=== PATIENT | female | born 1985 | race Caucasian/White ===

== ENCOUNTER 2016-09-29 20:42 | Inpatient (IN) | payer OTHER ==
[~2016-09-29] VITALS: Ht 171.5 cm; Wt 73.2 kg
[~2016-09-29 20:42] MED LIST: MTR600X PO; PREN1TAB29 PO
[2016-09-29] MEDS ORDERED: LACTATED RINGER'S 1000ML 1,000 ML IV PRN (21:01)
[2016-09-29 21:14] VITALS: Ht 171.5 cm; Wt 73.2 kg
[2016-09-29 21:39] LABS: HEMATOCRIT 38.2 % (37-47); MEAN CELL VOLUME 85.3 fL (80-100); MEAN CORPUSCULAR HEMOGLOBIN 30.6 pg (25-34); MEAN CORPUSCULAR HGB CONC 35.9 g/dl (32-36); MEAN PLATELET VOLUME 9.5 fL (7.4-10.4); PLATELET COUNT 158 K/uL (130-400); RED BLOOD COUNT 4.48 M/uL (4.2-5.4); WHITE BLOOD COUNT 8.89 K/uL (4.8-10.8)
[2016-09-29] MEDS ORDERED: OXYTOCIN 30 UNITS/500ML NSS IV ONE (21:39)
--- NOTE | 2016-09-29 21:41 | HISTORY & PHYSICAL EXAMINATION ---
DATE OF ADMISSION: 09/29/2016 CHIEF COMPLAINT: Leakage of fluid and contractions. HISTORY OF PRESENT ILLNESS: The patient is a 30-year-old -0-2-1 at 39 weeks and 5 days of gestation, who started to feel leakage of fluid around 8:00 p.m., it was trickling and then she had gush of clear fluid Her contractions started soon after, has been coming every 3-4 minutes. She is uncomfortable and desires epidural for pain. She denies any vaginal bleeding. She denies headache, change in her vision, nausea, vomiting, fever, chills, chest pain or shortness of breath. She reports good movements. Her has been uncomplicated. PAST MEDICAL HISTORY: Cornea disorder, blindness of right eye, deafness in right ear. PAST SURGICAL HISTORY: Breast augmentation, Schwannoma surgery, scalp reduction, oral surgery, nasal septum surgery and nasal sinus surgery. MEDICATIONS: vitamins. ALLERGIES: No known drug allergies. SOCIAL HISTORY: The patient is , lives with her and her son, and she is a nurse. She denies smoking, alcohol, or drug use. GYNECOLOGIC HISTORY: The patient denies any history of STDs, including chlamydia, gonorrhea, or herpes. OBSTETRICAL HISTORY: #1 was 2004, she had therapeutic . #2 in 2012, she had spontaneous . #3 in 2013, she had full term spontaneous vaginal delivery of a viable male son, baby was 8 pounds 11 ounces, delivered by myself. This is her fourth . LABS: Blood type is A positive, antibody screen negative, rubella titer positive, RPR nonreactive, hepatitis B surface antigen negative. Urine culture was negative. GC chlamydia cultures were negative. Quad screen testing was negative. Glucola was 79 mg/dL. GBS culture was negative on September 02. PHYSICAL EXAMINATION: GENERAL: The patient is alert, oriented x3. She is in moderate distress with contractions. VITAL SIGNS: Stable, afebrile. CARDIOVASCULAR: S1, S2, RRR. LUNGS: Clear to auscultation bilaterally. ABDOMEN: Soft, gravid, [place] 7-8 pounds. EXTREMITIES: Nontender, no edema. PELVIC: She is grossly ruptured, clear fluid. Her cervix is 6-7 cm dilated, 80% effaced, -1, with vertex presentation. heart rate is 140s, category 1. [place] contractions every 3-4 minutes. ASSESSMENT AND PLAN: The patient is a 30-year-old 4, para 1-0-2-1 at 39 weeks and 5 days of gestation presenting in active labor and spontaneous rupture of membranes. Vital signs stable, afebrile. heart rate reassuring. Group B strep negative. Plan is to admit her to start IV fluids and epidural for pain per patient request, and anticipate spontaneous vaginal delivery. MTDD
[2016-09-29] MEDS: LACTATED RINGER'S 1000ML 1,000 ML IV SCH (21:50)
[2016-09-29] MEDS ORDERED: BUPIVACAINE 0.25% 30 ML VIAL ONE (21:59)
[2016-09-29] MEDS ORDERED: FENTANYL 2MCG/ML ROPIV 1.25MG/ML 100ML BAG EPI ONE (21:59)
[2016-09-29] MEDS ORDERED: EpHEDrine SULFATE INJ 50 MG/ML AMP ONE (21:59)
[2016-09-29] MEDS ORDERED: FENTANYL CITRATE INJ 50 MCG/1 ML 2 ML VIAL ONE (21:59)
[2016-09-29] MEDS ORDERED: SUPERCREAM 0.870 % 15GM JAR EXT PRN (22:30)
[2016-09-29] MEDS ORDERED: HYDROCORTISONE ACETATE 25 MG SUPP PR PRN (22:30)
[2016-09-29] MEDS ORDERED: DIPHTHERIA/TETANUS/PERTUSSIS 0.5 ML SYR/VIAL IM. ONE (22:30)
[2016-09-29] MEDS ORDERED: LANOLIN OINT EXT PRN ×2 (22:30)
[2016-09-29] MEDS ORDERED: MEASLES, MUMPS & RUBELLA VIRUS VIAL SQ. ONE (22:30)
[2016-09-29] MEDS ORDERED: ACETAMINOPHEN 325 MG TAB PO PRN (22:30)
[2016-09-29] MEDS ORDERED: OXYTOCIN 30 UNITS/500ML NSS IV PRN (22:30)
[2016-09-29] MEDS ORDERED: BENZOCAINE 20% AER SPR 82.5 GM CAN EXT PRN (22:30)
--- NOTE | 2016-09-29 23:04 | DELIVERY SUMMARY ---
DATE OF OPERATION: 09/29/2016 TIME OF DELIVERY OF BABY: 2208. TIME OF DELIVERY OF PLACENTA: 2219. DETAILS OF DELIVERY: The patient is a 30-year-old G4, P 1-0-2-1, at 39 weeks and 5 days of gestation, who presented to labor and delivery with spontaneous rupture of membranes and in active labor. She progressed to full dilatation very quickly and desired to push. She did not have time to receive epidural. She pushed for about 15 minutes and delivered the head. Then turtle sign was noted and tight nuchal cord x2 around the neck. The patient was very uncomfortable to tolerate suprapubic pressure. Posterior shoulder was ( right) was bulging with minimal traction . The perineum was tight and intact. To facilitate the delivery of posterior shoulder a small right mediolateral episiotomy was opened and then posterior shoulder and the arm were delivered within 50 seconds from the delivery ot the head. Then the anterior shoulder. Nuchals cords were reduced and the baby was handed off to the mother, mouth and nose were suctioned. Cord was clamped x2 and cut. Baby was handed off to the awaiting pediatric team. Cord blood was obtained, it was a 3-vessel cord. Vagina and perineum were checked for lacerations. There was no laceration other than a small incision on the right labial skin which was about 1 cm. It was repaired with 2-0 Vicryl in a running locked fashion. Good hemostasis was achieved. The rest of the vagina and perineum were intact. Placenta was found to be in the vagina, delivered spontaneously as intact and complete. Uterus was explored, found to be empty. Lower segment was cleared off all clots and debris. Fundus was firm. EBL was 200. Baby was a viable male infant, Apgars 8 and 9, weight was 4087 gr. Mother and baby tolerated the procedure well in recovery. I was present during the whole procedure. I attest to the content of the Intraoperative Record and any orders documented therein. Any exceptions are noted below. JONNIED
[2016-09-29] MEDS: IBUPROFEN 600 MG TAB PO PRN (23:23)
[2016-09-30] VITALS (8 sets, daily range): BP systolic 108–138; BP diastolic 66–77; PULSE 64–93; TEMP 36.6–37.1
[2016-09-30] MEDS: LACTATED RINGER'S 1000ML 1,000 ML IV SCH (05:01)
[2016-09-30] MEDS: IBUPROFEN 600 MG TAB PO PRN ×4 (05:07→18:49)
[2016-09-30 07:27] LABS: HEMATOCRIT 33.8 % (37-47)
[2016-09-30] MEDS: DOCUSATE SODIUM 100 MG CAP PO SCH ×2 (09:10→19:54)
[2016-09-30] MEDS: PRENATAL VITAMIN TAB PO SCH (09:11)
[2016-09-30] MEDS: FERROUS SULFATE 325 MG TAB PO SCH (09:11)
--- NOTE | 2016-09-30 10:29 | OB/GYN Progress Note ---
[facility] Progress Note Date of Service Sep 30, 2016. Subjective conversation w/ patient, physical exam Ambulation: ambulating normally Voiding: no voiding problems Passing Gas: Yes Diet Tolerance: Regular Diet Lochia: Moderate Feeding Type: Breast Feeding Review of Systems Constitutional: No chills, No fatigue, No fever, No problem reported, No sweats , No weakness, No weight loss Respiratory: No cough, No dyspnea at rest, No dyspnea on exertion, No hemoptysis, No problem reported, No shortness of breath, No sputum, No wheezing Cardiac: No PND, No chest pain, No claudication, No edema, No orthopnea, No palpitations, No problem reported Breast: No breast lump, No breast pain, No change in shape, No nipple discharge , No problem reported, No see HPI Abdomen: No GI bleeding, No constipation, No diarrhea, No nausea, No pain, No problem reported, No vomiting Female : No abnormal vaginal bleeding, No dysuria, No hematuria, No incontinence, No problem reported, No see HPI, No urinary frequency, No vaginal discharge Objective Vital Signs Date Time Temp Pulse Resp B/P Pulse Ox O2 Delivery O2 Flow Rate FiO2 09/30/16 08:00 37.1 73 16 117/76 Room Air 09/30/16 04:30 36.6 80 20 112/66 Room Air 09/30/16 01:00 36.7 85 18 114/68 Room Air 09/30/16 01:00 Room Air Physical Exam General Appearance: WELL-APPEARING, WD/WN Respiratory/Chest: chest non-tender, lungs clear, normal breath sounds, no respiratory distress, no accessory muscle use Cardiovascular: regular rate, rhythm, no edema, no gallop, no JVD, no murmur Abdomen: normal bowel sounds, non tender, soft, no organomegaly, no pulsatile mass Fundus: Firm Incision Description: Clean, Dry & Intact Extremities: normal range of motion, non-tender, normal inspection, no pedal edema, no calf tenderness Laboratory Results Last 24 Hours Test 09/29/16 21:30 09/30/16 07:17 White Blood Count 8.89 K/uL Red Blood Count 4.48 M/uL Hemoglobin 13.7 g/dL 11.8 g/dL Hematocrit 38.2 % 33.8 % Mean Corpuscular Volume 85.3 fL Mean Corpuscular Hemoglobin 30.6 pg Mean Corpuscular Hemoglobin Concent 35.9 g/dl RDW Standard Deviation 39.9 fL RDW Coefficient of Variation 12.8 % Platelet Count 158 K/uL Mean Platelet Volume 9.5 fL Assessment and Plan Post- Day Number: 1 Continue Routine Care: Anticipate disch tomorrow
[2016-09-30] MEDS ORDERED: MTR600X PO (10:41)
--- NOTE | 2016-09-30 10:42 | Discharge Instructions ---
Discharge Instructions Date of Service Sep 30, 2016. Admission Reason for Admission: Check Rupture Discharge Discharge Diagnosis / Problem: Discharge Goals Goal(s): Routine recovery after delivery Activity Recommendations Activity Limitations: as noted below ACTIVITY RECOMMENDATIONS: * Gradual return to full activity over the next 2-3 weeks. * No lifting - nothing heavier than baby over the next 2-3 weeks. * Do not engage in vigorous exercise, sexual activity or sports until cleared by your physician. * Do not drive or operate any motorized equipment until cleared by your physician. * You may shower/bathe daily. BREAST CARE: If you are not breast feeding: * Wear a supportive bra 24 hours a day for one to two weeks. * Avoid stimulating your breasts and nipples as much as possible during the first few weeks after delivery. * When taking a shower, have the warm water hit your back, not breasts. * When your breasts feel full, apply ice packs. Usually three to four times a day helps ease the discomfort. * Take a mild pain medication (Tylenol/Motrin) when you are uncomfortable. If breast feeding: * Use breast milk to lubricate nipples. Lansinoh cream may be used for sore nipples. You do not need to remove cream prior to breast feeding. If using a different brand of cream, check the label for directions regarding removal of cream prior to nursing. * Wear a supportive bra. * If having problems with breasts or breast feeding, call a nursing education consultant or your health care provider. EPISIOTOMY CARE: After delivery, if you have an episiotomy (stitches), the following steps will ease discomfort and aid healing. * For the first 24 hours after delivery, place ice packs next to your episiotomy to help reduce swelling. * After the first 24 hour-period, sitz baths, either portable or in the tub, are suggested. A shower with a shower arm sprayed over the episiotomy may be comforting. * Terri care should be done after each voiding and bowel movement. Squirt warm water from a plastic bottle over the perineum (region of the body between the anus and urinary opening) and pat dry. * Use Dermoplast to ease discomfort. Shake container. [place] directly over the episiotomy. * Place a Tucks on a clean sanitary pad next to your episiotomy. OVER THE COUNTER MEDICATION: * For discomfort or pain, you may use Acetaminophen (Tylenol), Ibuprofen (Advil ), or Naproxen (Aleve) following the package directions. * For constipation you may use Colace following the package directions. SPECIAL CARE INSTRUCTIONS: When you are discharged from the hospital, it is important for you to follow the instructions listed below: * During the first week at home, you should be able to care for yourself and your baby. In addition, the usual light household activities are encouraged. * Limit your activities to the way you feel. Do not try to clean the house or move furniture. Be sensible. * If you actively engage in sports and have done so up until the time of your delivery, you may resume these activities as soon as you feel able. This may take up to one month or even longer. Use good judgment. * Continue to take your vitamins for at least six weeks after the of your baby. * Your diet need not be limited unless you were on a special diet before your delivery. Breast-feeding mothers need around 2500 calories per day and at least 64-80 ounces of fluid per day (8 to 10 glasses). * You should eat foods from the four major food groups. Crash diets or fad diets are to be avoided. Eating lean meats, fresh fruits and vegetables, low-fat dairy products, high fiber foods and a regular exercise program, will help you get back to your pre- weight without putting your health at risk. * Constipation is sometimes a problem after delivery. Take a mild laxative as needed. If breast feeding, Milk of Magnesia is acceptable to use. You may use a suppository or Fleets enema if no episiotomy. * A daily shower or tub bath is suggested. Be sure to thoroughly and gently dry the perineum. * A bloody vaginal discharge will usually continue until around four weeks post . A small amount of bleeding may continue for as long as six weeks. Vaginal discharge changes from the bright red bleeding after delivery to pink then brownish and finally yellowish-pink before becoming white and disappearing. * Bleeding may increase with activity. Your first period may come in 4-8 weeks. If you are breast feeding, your period may be delayed even longer. * [place] (sex) can begin whenever both you and your partner feel comfortable and do not have any form of genital infection. It is recommended that you wait until after your return appointment and discuss with your physician. If you have questions, please talk to your health care practitioner. A condom should be used to prevent infection and . * Foreplay, gentle intercourse and lubrication is very important the first several times to prevent pain. A water-based lubricant such as K-Y jelly or Astroglide may be used. * Tampons may be used six weeks after delivery. * Douching should be avoided for 6 weeks after delivery. * If you have RH negative blood and your baby is RH positive, you will receive RHOGAM by injection prior to discharge. The nurse will give you a card to keep with you that has the date and place that you received RHOGAM after delivery. * During your care, you had a Rubella screen done to check for the presence of rubella antibodies in your blood. If your test was negative, you will receive a Rubella vaccine prior to discharge. This vaccine may cause a fever, soreness at the injection site and flu-like symptoms. If these symptoms persist, notify your health care practitioner. is not advised for three months after a Rubella vaccine. There is a higher chance of having a baby with defects if conceived within three months of getting the vaccine. * If you were discharged 24 hours from delivery or before 48 hours: Visiting nurses will come to your home 48 hours after discharge to assess you and your baby. The visiting nurse will meet with you while you are in the hospital to arrange a time and get directions to your home. * Verbalizes understanding of car seat law as reviewed with patient nursing. * Car Seat hand-out given and reviewed with patient by nursing. * Shaken baby information reviewed with patient by nursing. Call you doctor if: * Heavy bleeding (saturating several pads an hour) or passing clots the size of your fist. * A fever >101 degrees F (38.3 degrees C) on two occasions four hours apart and/or chills. * Unusual pain in the pelvic or vaginal areas. * "Baby Blues" lasting longer than two weeks. If you have any questions or concerns, call your health care practitioner at . FOLLOW-UP VISIT: * Please call the office at to schedule a 6 week examination. It is important you keep this appointment. * It is important for you to make arrangements for either yearly or twice yearly check-ups thereafter. . Current Hospital Diet Patient's current hospital diet: Regular OB Diet Discharge Diet Recommended Diet: Regular Diet Pending Studies Studies pending at discharge: no Medical Emergencies . Who to Call and When: Medical Emergencies: If at any time you feel your situation is an emergency, please call 911 immediately. . Non-Emergent Contact Non-Emergency issues call your: Specialist . . "Provider Documentation" section prepared by Kennedy Berger. . VTE Core Measure Inpt VTE Proph given/why not?: Treatment not indicated
[2016-09-30] MEDS: OXYCODONE/ACETAMINOPHEN 5-325 TAB PO PRN (19:54)
[2016-09-30] MEDS ORDERED: BISACODYL 5 MG TABEC PO SCH (20:00)
[2016-10-01] MEDS: OXYCODONE/ACETAMINOPHEN 5-325 TAB PO PRN (00:04)
[2016-10-01 06:09] LABS: MEAN CELL VOLUME 87.2 fL (80-100); MEAN CORPUSCULAR HGB CONC 34.4 g/dl (32-36); MEAN PLATELET VOLUME 9.3 fL (7.4-10.4); PLATELET COUNT 147 K/uL (130-400); RED BLOOD COUNT 3.67 M/uL (4.2-5.4); WHITE BLOOD COUNT 8.85 K/uL (4.8-10.8)
[2016-10-01] MEDS ORDERED: BISACODYL 10 MG SUPP PR PRN (07:00)
[2016-10-01 07:50] VITALS: BP 116/75; PULSE 74; TEMP 36.6; O2SAT 100
[2016-10-01] MEDS: FERROUS SULFATE 325 MG TAB PO SCH (08:33)
[2016-10-01] MEDS: DOCUSATE SODIUM 100 MG CAP PO SCH (08:33)
[2016-10-01] MEDS: PRENATAL VITAMIN TAB PO SCH (08:33)
[2016-10-01] MEDS: IBUPROFEN 600 MG TAB PO PRN (08:34)
[2016-10-01] MEDS ORDERED: MTR600X PO (09:00)
--- NOTE | 2016-10-01 09:02 | Discharge Instructions ---
Discharge Instructions Date of Service Oct 01, 2016. Admission Reason for Admission: Check Rupture Discharge Discharge Diagnosis / Problem: term delivered Discharge Goals Goal(s): Routine recovery after delivery Activity Recommendations Activity Limitations: as noted below Lifting Limitations: gradually increase as tolerated Exercise/Sports Limitations: gradually increase as tolerated May Resume Sexual Activity: after follow-up appointment Shower/Bathe: no limitations Driving or Machine Use: resume 3 days after discharge . Instructions / Follow-Up Instructions / Follow-Up ACTIVITY RECOMMENDATIONS: * Gradual return to full activity over the next 2-3 weeks. * No lifting - nothing heavier than baby over the next 2-3 weeks. * Do not engage in vigorous exercise, sexual activity or sports until cleared by your physician. * Do not drive or operate any motorized equipment until cleared by your physician. * You may shower/bathe daily. BREAST CARE: If you are not breast feeding: * Wear a supportive bra 24 hours a day for one to two weeks. * Avoid stimulating your breasts and nipples as much as possible during the first few weeks after delivery. * When taking a shower, have the warm water hit your back, not breasts. * When your breasts feel full, apply ice packs. Usually three to four times a day helps ease the discomfort. * Take a mild pain medication (Tylenol/Motrin) when you are uncomfortable. If breast feeding: * Use breast milk to lubricate nipples. Lansinoh cream may be used for sore nipples. You do not need to remove cream prior to breast feeding. If using a different brand of cream, check the label for directions regarding removal of cream prior to nursing. * Wear a supportive bra. * If having problems with breasts or breast feeding, call a senior safety management consultant or your health care provider. EPISIOTOMY CARE: After delivery, if you have an episiotomy (stitches), the following steps will ease discomfort and aid healing. * For the first 24 hours after delivery, place ice packs next to your episiotomy to help reduce swelling. * After the first 24 hour-period, sitz baths, either portable or in the tub, are suggested. A shower with a shower arm sprayed over the episiotomy may be comforting. * Terri care should be done after each voiding and bowel movement. Squirt warm water from a plastic bottle over the perineum (region of the body between the anus and urinary opening) and pat dry. * Use Dermoplast to ease discomfort. Shake container. [place] directly over the episiotomy. * Place a Tucks on a clean sanitary pad next to your episiotomy. OVER THE COUNTER MEDICATION: * For discomfort or pain, you may use Acetaminophen (Tylenol), Ibuprofen (Advil ), or Naproxen (Aleve) following the package directions. * For constipation you may use Colace following the package directions. SPECIAL CARE INSTRUCTIONS: When you are discharged from the hospital, it is important for you to follow the instructions listed below: * During the first week at home, you should be able to care for yourself and your baby. In addition, the usual light household activities are encouraged. * Limit your activities to the way you feel. Do not try to clean the house or move furniture. Be sensible. * If you actively engage in sports and have done so up until the time of your delivery, you may resume these activities as soon as you feel able. This may take up to one month or even longer. Use good judgment. * Continue to take your vitamins for at least six weeks after the of your baby. * Your diet need not be limited unless you were on a special diet before your delivery. Breast-feeding mothers need around 2500 calories per day and at least 64-80 ounces of fluid per day (8 to 10 glasses). * You should eat foods from the four major food groups. Crash diets or fad diets are to be avoided. Eating lean meats, fresh fruits and vegetables, low-fat dairy products, high fiber foods and a regular exercise program, will help you get back to your pre- weight without putting your health at risk. * Constipation is sometimes a problem after delivery. Take a mild laxative as needed. If breast feeding, Milk of Magnesia is acceptable to use. You may use a suppository or Fleets enema if no episiotomy. * A daily shower or tub bath is suggested. Be sure to thoroughly and gently dry the perineum. * A bloody vaginal discharge will usually continue until around four weeks post . A small amount of bleeding may continue for as long as six weeks. Vaginal discharge changes from the bright red bleeding after delivery to pink then brownish and finally yellowish-pink before becoming white and disappearing. * Bleeding may increase with activity. Your first period may come in 4-8 weeks. If you are breast feeding, your period may be delayed even longer. * [place] (sex) can begin whenever both you and your partner feel comfortable and do not have any form of genital infection. It is recommended that you wait until after your return appointment and discuss with your physician. If you have questions, please talk to your health care practitioner. A condom should be used to prevent infection and . * Foreplay, gentle intercourse and lubrication is very important the first several times to prevent pain. A water-based lubricant such as K-Y jelly or Astroglide may be used. * Tampons may be used six weeks after delivery. * Douching should be avoided for 6 weeks after delivery. * If you have RH negative blood and your baby is RH positive, you will receive RHOGAM by injection prior to discharge. The nurse will give you a card to keep with you that has the date and place that you received RHOGAM after delivery. * During your care, you had a Rubella screen done to check for the presence of rubella antibodies in your blood. If your test was negative, you will receive a Rubella vaccine prior to discharge. This vaccine may cause a fever, soreness at the injection site and flu-like symptoms. If these symptoms persist, notify your health care practitioner. is not advised for three months after a Rubella vaccine. There is a higher chance of having a baby with defects if conceived within three months of getting the vaccine. * If you were discharged 24 hours from delivery or before 48 hours: Visiting nurses will come to your home 48 hours after discharge to assess you and your baby. The visiting nurse will meet with you while you are in the hospital to arrange a time and get directions to your home. * Verbalizes understanding of car seat law as reviewed with patient nursing. * Car Seat hand-out given and reviewed with patient by nursing. * Shaken baby information reviewed with patient by nursing. Call you doctor if: * Heavy bleeding (saturating several pads an hour) or passing clots the size of your fist. * A fever >101 degrees F (38.3 degrees C) on two occasions four hours apart and/or chills. * Unusual pain in the pelvic or vaginal areas. * "Baby Blues" lasting longer than two weeks. If you have any questions or concerns, call your health care practitioner at . FOLLOW-UP VISIT: * Please call the office at to schedule a 6 week examination. It is important you keep this appointment. * It is important for you to make arrangements for either yearly or twice yearly check-ups thereafter. Current Hospital Diet Patient's current hospital diet: Regular OB Diet Discharge Diet Recommended Diet: Regular OB Diet Fluid Restriction: None Pending Studies Studies pending at discharge: no Work Instructions Return To Work: after follow-up Lifting Limitations: no more than 10 pounds Medical Emergencies . Who to Call and When: Medical Emergencies: If at any time you feel your situation is an emergency, please call 911 immediately. . Non-Emergent Contact Non-Emergency issues call your: Primary Care Provider . . "Provider Documentation" section prepared by Cordell Waldrop. . VTE Core Measure Inpt VTE Proph given/why not?: Treatment not indicated
--- NOTE | 2016-10-01 09:11 | OB/GYN Progress Note ---
[facility] Progress Note Date of Service Oct 01, 2016. Subjective conversation w/ patient, physical exam Ambulation: ambulating normally Voiding: no voiding problems Passing Gas: Yes Diet Tolerance: Regular Diet Lochia: Small Feeding Type: Bottle Feeding Objective Vital Signs Date Time Temp Pulse Resp B/P Pulse Ox O2 Delivery O2 Flow Rate FiO2 09/30/16 23:50 37.0 67 18 111/67 Room Air 09/30/16 23:50 Room Air 09/30/16 19:45 36.8 76 20 120/75 Room Air 09/30/16 15:53 36.9 64 18 109/72 Room Air 09/30/16 15:20 Room Air 09/30/16 11:52 37.0 76 20 138/77 Room Air Physical Exam General Appearance: WELL-APPEARING, NO APPARENT DISTRESS Abdomen: normal bowel sounds, non tender, soft Fundus: Firm Extremities: normal range of motion, normal inspection Laboratory Results Last 24 Hours Test 10/01/16 05:30 White Blood Count 8.85 K/uL Red Blood Count 3.67 M/uL Hemoglobin 11.0 g/dL Hematocrit 32.0 % Mean Corpuscular Volume 87.2 fL Mean Corpuscular Hemoglobin 30.0 pg Mean Corpuscular Hemoglobin Concent 34.4 g/dl RDW Standard Deviation 42.2 fL RDW Coefficient of Variation 13.1 % Platelet Count 147 K/uL Mean Platelet Volume 9.3 fL Assessment and Plan Post- Day Number: 2 Continue Routine Care: discharged
[2016-10-01 14:15] VITALS: BP_DIAS 75; PULSE 74; TEMP 36.6
== END 2016-10-01 14:15 | disposition home or self-care (01) | DRG 775 ==
LOC: C.OPB 20:42 → C.LD 20:43 → C.OPB 20:55 → C.LD 20:57 → C.OBG 09-30 00:59
PROVIDERS: ADMIT Obstetrics & Gynecology; ATTEND Obstetrics & Gynecology
PROC: 0W8NXZZ Division of Female Perineum, External Approach (ICD-10-PCS; principal; 2016-09-29)
PROC: 10E0XZZ Delivery of Products of Conception, External Approach (ICD-10-PCS; principal; 2016-09-29)
DX: O42.02 Full-term premature rupture of membranes, onset of labor within 24 hours of rupture (principal); Z37.0 Single live birth; O69.1XX0 Labor and delivery complicated by cord around neck, with compression, not applicable or unspecified; Z3A.39 39 weeks gestation of pregnancy

== ENCOUNTER 2020-11-14 20:02 | Inpatient (IN) ==
[2020-11-14] MEDS: LACTATED RINGER'S 1,000 ML IV PRN ×2 (20:05→23:40)
[2020-11-14] MEDS ORDERED: BUPIVACAINE 0.25% 30 ML VIAL ONE (20:09)
[2020-11-14] MEDS ORDERED: ePHEDrine sulfate 50 MG/ML AMP ONE (20:09)
[2020-11-14] MEDS ORDERED: fentaNYL citrate 100 MCG/2 ML VIAL ONE (20:09)
[2020-11-14] MEDS ORDERED: fentaNYL 2MCG/ML ROPIVACAINE 1.25MG/ML 100 ML BAG EPI ONE (20:09)
[2020-11-14] MEDS ORDERED: OXYTOCIN 30 UNITS/500 ML BAG IV PRN ×3 (20:13→22:36)
[2020-11-14] MEDS ORDERED: PENICILLIN G POTASSIUM 6 MU in DEXTROSE 5% 250 ML IV STA (20:13)
--- NOTE | 2020-11-14 20:24 | History & Physical Report ---
Date of Service November 14, 2020 Assessment & Plan (1) premature rupture of membranes: 35-year-old -0-2-2 at 35 weeks and 3 days of gestation presenting with premature rupture of membranes, history of macrosomia in prior pregnancies, IUGR with during with abnormal Dopplers, unknown GBS Vital signs stable afebrile heart rate reassuring Plan to admit, monitor, IV penicillin for unknown GBS and anticipate vaginal delivery. [employer] on-call has been notified. (2) Advanced maternal age (AMA) in : (3) IUGR (intrauterine growth restriction): Admission and Anticipated Discharge Date Admission Date: November 14, 2020 History of Present Illness Primary Care Provider: Adam Carl MD Patient is a 35-year-old -0-2-2 at 35 weeks and 3 days of gestation who had leakage of fluid at 6:30 PM. It was a gush and continued with trickling of clear water. No vaginal bleeding no contractions. She feels mild lower abdominal cramping. She denies fever chills, abdominal pain, nausea or vomiting nor Covid symptoms. This has been complicated by 1 advanced maternal age, NIPT was low risk 2 history of macrosomia 3 history of LEEP 4 history of brain schwannoma and surgery 5 IUGR, abdominal circumference is less than 2nd percentile with abnormal Doppler studies, elevated SD ratio per MFM ultrasound yesterday. She was recommended to follow-up next week for Dopplers. 6 unknown GBS Allergies Allergy/AdvReac Type Severity Reaction Status Date / Time No Known Allergies Allergy Verified 11/14/20 20:24 Home Medications Medication Instructions Recorded Confirmed Type VIT W/ FERROUS FUMARA PO DAILY #0 03/15/14 History () Ibuprofen 600 mg PO Q4H PRN #30 tab 09/30/16 Rx Ibuprofen 600 mg PO Q4H PRN #30 tab 10/01/16 Rx albuterol sulfate 3 inha INH Q4H PRN #8.5 gm 04/20/18 Rx Patient History Medical History Asthma Sinusitis Surgical History H/O sinus surgery Family History Other No pertinent family history Social History Smoking Status: Never smoker Hx Alcohol Use: No Hx Substance Use: No Preferred Language: Amharic Communication Ability: Effective Education Paraprofessional Required: No Beliefs That Will Affect Care: None marital status: Current Living Situation: Spouse and Family Other Information That Helps Us Care for You: No Feels Safe at Home: Yes Safety Concerns: Feels Safe At This Time OB History 2 FT 2 SAB [place] [employer] History No h/o STD's , no h/o HSV/ [place]/ GC Physical Exam Constitutional: WD/WN, vitals as above well developed NAD Gastrointestinal (Abdomen): normal bowel sounds, soft, nontender, no hepatosplenomegaly (Gravid, Wilner 5 lb) Genitourinary: normal external appearance OB Exam Abdomen: + vertex Manual OB Exam: + cervical dilation 5 cm, + cervical effacement 70% and + station -2 OB Exam Monitor Tracing: + external uterine monitor used and + category I Grossly ruptured, nitrazine is positive Results & Data ([facility]) Vital Signs (Past 12 Hours) Vital Signs Temp Pulse Resp BP 11/14/20 20:12 37.0 C 101 H 16 125/79
[2020-11-14 20:47] LABS: Hematocrit (blood only) 38.7 % (37-47); Hemoglobin 13.6 g/dL (12.0-16.0); Mean Corpuscular Hemoglobin 30.3 pg (25-34); Mean Corpuscular Hgb Conc 35.1 g/dL (32-36); Mean Corpuscular Volume 86.2 fL (80-100); Mean Platelet Volume 9.8 fL (7.4-10.4); Platelet Count 194 K/uL (130-400); RDW Coefficient of Variation 12.8 % (11.5-14.5); RDW Standard Deviation 40.7 fL (36.4-46.3); Red Blood Count 4.49 M/uL (4.2-5.4); White Blood Count 10.17 K/uL (4.8-10.8)
--- NOTE | 2020-11-14 22:31 | Obstetrical Progress Note ---
Date of Service November 14, 2020 Assessment & Plan Admission and Anticipated Discharge Date Admission Date: November 14, 2020 Subjective Patient is reevaluated. She has irregular mild contractions. She received first dose of PCN and decided not to have epidural for now. Patient about benefits and risk of expectant management versus induction of labor with PPROM. Patient desires to be checked and and wants induction of labor if there is no change. Cervix is 5 to 6 cm, 50%, head is at -3 station, with no significant change. heart rate category 1 Ramer with irregular contractions. Discussed starting Pitocin when she is due for second dose of penicillin. And she agrees with the plan. All questions were answered. Results & Data ([facility]) Vital Signs (Past 12 Hours) Vital Signs Temp Pulse Resp BP Pulse Ox 11/14/20 22:05 86 95 11/14/20 22:01 83 94 11/14/20 22:00 81 94 11/14/20 21:55 84 95 11/14/20 21:52 92 H 94 11/14/20 21:50 85 94 11/14/20 21:46 86 94 11/14/20 21:45 85 94 11/14/20 21:40 84 97 11/14/20 21:35 80 95 11/14/20 21:30 94 H 96 11/14/20 21:25 87 96 11/14/20 21:20 79 96 11/14/20 21:15 86 96 11/14/20 21:10 93 H 97 11/14/20 21:05 85 97 11/14/20 21:00 81 98 11/14/20 20:55 86 97 11/14/20 20:50 86 95 11/14/20 20:45 88 96 11/14/20 20:12 37.0 C 101 H 16 125/79
[2020-11-15] MEDS: PENICILLIN G POTASSIUM 3 MU in DEXTROSE 5% 100 ML IV PRN ×3 (00:23→08:39)
[2020-11-15] MEDS ORDERED: diphenhydrAMINE 50 MG/ML VIAL IV PRN (00:49)
[2020-11-15] MEDS ORDERED: NALOXONE HCL 0.4 MG/1 ML VIAL/CARP IV PRN (00:49)
[2020-11-15] MEDS ORDERED: ONDANSETRON INJ 2 MG/ML 2 ML VIAL IV PRN (00:49)
[2020-11-15] MEDS ORDERED: ePHEDrine sulfate 50 MG/ML AMP IV PRN (00:49)
[2020-11-15] MEDS ORDERED: NALOXONE HCL 1 MG in SODIUM CHLORIDE 0.9% 1000ML 1,000 ML IV PRN (00:49)
--- NOTE | 2020-11-15 01:01 | Anesthesiology Consultation ---
Date of Service November 15, 2020 Assessment & Plan Chart Review Chart Review: Patient NOT seen in Pre Admission Testing and Acceptable Risk for Labor Epidural Consults Requested none ASA ASA2 Proposed Anesthesia Anesthesia Type: Labor Epidural and CSE Risk / Benefits Reviewed With: PT / POA / Parent / Guardian, Accepts Plan and Informed Consent Obtained History Height/Weight Height: 5 ft 8 in Weight: 68.946 kg Allergies Allergy/AdvReac Type Severity Reaction Status Date / Time No Known Allergies Allergy Verified 11/14/20 20:24 Medications Home Medications Medication Instructions Recorded Confirmed Last Taken VIT W/ FERROUS FUMARA PO DAILY #0 03/15/14 Unknown () Active Medications Generic Name Dose Route Start Last Admin Trade Name Freq PRN Reason Stop Dose Admin Penicillin G Potassium 3 mu/ 106 mls @ 100 mls/hr 11/14/20 20:13 11/15/20 00:23 Dextrose IV 11/24/20 20:12 100 mls/hr Q4H PRN Administration Give until delivery Lactated Ringer's 1,000 mls @ 150 mls/hr 11/14/20 20:13 11/14/20 23:40 Lr IV 11/16/20 20:12 150 mls/hr .Q6H40M PRN Administration L&D Protocol Protocol Oxytocin 30 units in 500 mls @ 1 mls/hr 11/14/20 22:36 11/15/20 00:28 Pitocin IV 11/16/20 22:35 0.06 units/hr .Q24H PRN 1 mls/hr Labor Induction/Augmentation Administration Protocol 0.06 UNITS/HR NPO Date Last Intake of Fluids: 11/15/20 Time Last Intake of Fluids: 00:30 Date Last Intake of Solids: 11/14/20 Time Last Intake of Solids: 16:30 Past Medical History Medical History Sinusitis Exercise / Class Metabolic Activity II 4-5 Yardwork/Stairs/Walk up hill Past Family History Family History Other No pertinent family history Past Surgical History Surgical History H/O sinus surgery Past Anesthesia History No Hx of Anesthesia Complications and No Family Hx of Anesthesia Complications History of PONV No Hx of PONV and No Hx of Motion Sickness Social History Smoking Status: Never smoker Hx Alcohol Use: No Hx Substance Use: No Review of Systems no chest pain or sob, patient has a chronic cough Physical Exam Vital Signs Last Vital Signs Temp 36.8 C 11/15/20 00:25 Pulse 88 11/15/20 00:57 Resp 16 11/15/20 00:25 BP 104/65 11/14/20 22:29 Pulse Ox 98 11/15/20 00:57 ENMT Mouth: no TMJ abnormality Thyromental Distance: > or= 3.5 Finger Breadths Mallampati Class: II Neck normal visual inspection Respiratory normal respiratory effort and + cough Auscultation: lungs clear to auscultation bilaterally Cardiovascular Rate/Rhythm: regular rate and regular rhythm Musculoskeletal Spine: normal cervical ROM Neurologic moves all extremities Psychiatric Orientation: alert and oriented x 3 Testing Laboratory Results 11/14/20 20:36
[2020-11-15] MEDS: fentaNYL 2MCG/ML ROPIVACAINE 1.25MG/ML 100 ML BAG EPI PRN ×2 (01:18→09:58)
--- NOTE | 2020-11-15 02:31 | Obstetrical Progress Note ---
Date of Service November 15, 2020 Assessment & Plan Admission and Anticipated Discharge Date Admission Date: November 14, 2020 Subjective Patient received epidural and comfortable now FHR had decelerations after epidural Pitocin was at 2 miu/min, was stopped and she has given IVF bolus FHR back to 130-140's VE; 5/ 50%/ -2, scalp stimulation with increase in FHR to 140's Leaking clear fluid Continue to monitor closely Results & Data ([facility]) Vital Signs (Past 12 Hours) Vital Signs Temp Pulse Resp BP Pulse Ox 11/15/20 02:26 71 101/62 11/15/20 02:24 75 94 11/15/20 02:16 77 96 11/15/20 02:15 82 94 11/15/20 02:10 72 101/62 11/15/20 02:01 71 93 11/15/20 01:59 75 94 11/15/20 01:55 75 104/63 11/15/20 01:51 69 94 11/15/20 01:46 78 93 11/15/20 01:41 70 117/70 94 11/15/20 01:31 81 94 11/15/20 01:30 79 94 11/15/20 01:25 83 97/62 L 94 11/15/20 01:24 81 96/59 L 11/15/20 01:22 82 101/58 L 11/15/20 01:20 82 99/59 L 11/15/20 01:18 86 101/58 L 11/15/20 01:16 76 109/66 11/15/20 01:12 75 97 11/15/20 01:07 87 99 11/15/20 01:02 78 97 11/15/20 00:57 88 98 11/15/20 00:25 36.8 C 16 11/14/20 22:29 36.6 C 79 16 104/65 11/14/20 22:05 86 95 11/14/20 22:01 83 94 11/14/20 22:00 81 94 11/14/20 21:55 84 95 11/14/20 21:52 92 H 94 11/14/20 21:50 85 94 11/14/20 21:46 86 94 11/14/20 21:45 85 94 11/14/20 21:40 84 97 11/14/20 21:35 80 95 11/14/20 21:30 94 H 96 11/14/20 21:25 87 96 11/14/20 21:20 79 96 11/14/20 21:15 86 96 11/14/20 21:10 93 H 97 11/14/20 21:05 85 97 11/14/20 21:00 81 98 11/14/20 20:55 86 97 11/14/20 20:50 86 95 11/14/20 20:45 88 96 11/14/20 20:12 37.0 C 101 H 16 125/79
[2020-11-15] MEDS: LACTATED RINGER'S 1,000 ML IV PRN (05:51)
--- NOTE | 2020-11-15 07:45 | Labor Progress Brief Note ---
Date of Service November 15, 2020 Assessment & Plan Admission and Anticipated Discharge Date Admission Date: November 14, 2020 Physical Exam Genitourinary: Manual OB Exam: + cervical dilation 7 cm, + cervical effacement 70%, + station -1 and + amniotic fluid clear OB Exam Monitor Tracing: + external FHT monitor used, + external uterine monitor used, + category I and + normal FHT variability Results & Data ([facility]) Vital Signs (Past 12 Hours) Vital Signs Temp Pulse Resp BP Pulse Ox 11/15/20 07:42 76 125/64 11/15/20 07:31 66 98 11/15/20 07:26 66 124/79 11/15/20 07:25 36.6 C 67 20 124/79 99 11/15/20 07:16 74 100 11/15/20 07:10 72 109/76 11/15/20 07:01 70 93 11/15/20 06:56 66 107/70 11/15/20 06:48 66 94 11/15/20 06:46 68 94 11/15/20 06:40 67 110/71 11/15/20 06:33 65 94 11/15/20 06:31 66 95 11/15/20 06:25 36.8 C 72 18 112/75 11/15/20 06:16 69 97 11/15/20 06:11 64 124/79 11/15/20 06:01 64 98 11/15/20 05:56 61 103/64 11/15/20 05:46 66 97 11/15/20 05:40 64 103/61 11/15/20 05:31 69 98 11/15/20 05:25 68 112/71 11/15/20 05:16 67 97 11/15/20 05:11 72 93/56 L 11/15/20 05:01 69 94 11/15/20 04:55 70 97/61 L 11/15/20 04:46 67 94 11/15/20 04:40 70 98/59 L 11/15/20 04:36 68 94 11/15/20 04:31 70 94 11/15/20 04:30 36.5 C 18 11/15/20 04:25 74 103/62 94 11/15/20 04:16 61 94 11/15/20 04:10 76 100/60 11/15/20 04:01 76 92 06/04/21 03:55 74 104/64 11/15/20 03:46 76 93 11/15/20 03:40 76 111/67 11/15/20 03:31 78 93 11/15/20 03:26 71 94 11/15/20 03:25 72 109/65 11/15/20 03:16 71 93 11/15/20 03:15 71 94 11/15/20 03:10 77 105/63 11/15/20 03:09 72 94 11/15/20 03:01 72 95 11/15/20 02:59 73 94 11/15/20 02:47 74 94 11/15/20 02:46 72 95 11/15/20 02:41 72 94 11/15/20 02:40 73 105/66 11/15/20 02:31 76 97 11/15/20 02:26 36.7 C 71 18 101/62 11/15/20 02:24 75 94 11/15/20 02:16 77 96 11/15/20 02:15 82 94 11/15/20 02:10 72 101/62 11/15/20 02:01 71 93 11/15/20 01:59 75 94 11/15/20 01:55 75 104/63 11/15/20 01:51 69 94 11/15/20 01:46 78 93 11/15/20 01:41 70 117/70 94 11/15/20 01:31 81 94 11/15/20 01:30 79 94 11/15/20 01:25 83 97/62 L 94 11/15/20 01:24 81 96/59 L 11/15/20 01:22 82 101/58 L 11/15/20 01:20 82 99/59 L 11/15/20 01:18 86 101/58 L 11/15/20 01:16 76 109/66 11/15/20 01:12 75 97 11/15/20 01:07 87 99 11/15/20 01:02 78 97 11/15/20 00:57 88 98 11/15/20 00:25 36.8 C 16 06 22:29 36.6 C 79 16 104/65 11/14/20 22:05 86 95 11/14/20 22:01 83 94 11/14/20 22:00 81 94 11/14/20 21:55 84 95 11/14/20 21:52 92 H 94 11/14/20 21:50 85 94 11/14/20 21:46 86 94 11/14/20 21:45 85 94 11/14/20 21:40 84 97 11/14/20 21:35 80 95 11/14/20 21:30 94 H 96 11/14/20 21:25 87 96 11/14/20 21:20 79 96 11/14/20 21:15 86 96 11/14/20 21:10 93 H 97 11/14/20 21:05 85 97 11/14/20 21:00 81 98 11/14/20 20:55 86 97 11/14/20 20:50 86 95 11/14/20 20:45 88 96 11/14/20 20:12 37.0 C 101 H 16 125/79
[2020-11-15] MEDS ORDERED: HYDROCORTISONE ACETATE 25 MG SUPP PR PRN (11:50)
[2020-11-15] MEDS ORDERED: OXYTOCIN 30 UNITS/500 ML BAG IV PRN (11:50)
[2020-11-15] MEDS ORDERED: BENZOCAINE 20% AER SPR 82.5 GM CAN EXT PRN (11:50)
[2020-11-15] MEDS ORDERED: DIPHTHERIA/TETANUS/PERTUSSIS 0.5 ML SYR/VIAL IM ONE (11:50)
[2020-11-15] MEDS ORDERED: SUPERCREAM 0.870% 15 GM JAR EXT PRN (11:50)
[2020-11-15] MEDS ORDERED: bisacodyL 10 MG SUPP PR PRN (11:50)
[2020-11-15] MEDS ORDERED: ACETAMINOPHEN 325 MG TAB PO PRN (11:50)
--- NOTE | 2020-11-15 15:23 | Anesthesia Procedure Note ---
Date of Service November 15, 2020 Anesthesia Post Epidural Note Vital Signs Vital Signs: Temp Pulse Resp BP Pulse Ox 36.7 C 81 20 104/75 98 11/15/20 09:29 11/15/20 14:34 11/15/20 12:25 11/15/20 14:34 11/15/20 11:16 Pain Intensity Bilateral Abdomen: Pain Intensity: 0 Notes Mental Status: alert / awake / arousable Nausea / Vomiting: adequately controlled Pain: adequately controlled Airway Patency, RR, SpO2: stable & adequate BP & HR: stable & adequate Hydration State: stable & adequate Neuraxial Anesthesia: was administered and sensory block is resolving Anesthetic Complications: no major complications apparent and Pt Satisfied with anesthetic care Epidural: Removed without complications and With tip intact
[2020-11-15] MEDS: IBUPROFEN 600 MG TAB PO PRN (18:38)
[2020-11-15] MEDS: DOCUSATE SODIUM 100 MG CAP PO SCH (20:33)
[2020-11-16] MEDS: IBUPROFEN 600 MG TAB PO PRN ×2 (05:27→16:38)
[2020-11-16 06:26] LABS: Hematocrit (blood only) 38.8 % (37-47); Hemoglobin 13.2 g/dL (12.0-16.0); Mean Corpuscular Hemoglobin 29.6 pg (25-34); Mean Platelet Volume 9.9 fL (7.4-10.4); Platelet Count 179 K/uL (130-400); RDW Coefficient of Variation 13.1 % (11.5-14.5); RDW Standard Deviation 41.7 fL (36.4-46.3); Red Blood Count 4.46 M/uL (4.2-5.4); White Blood Count 9.81 K/uL (4.8-10.8)
[2020-11-16] MEDS: DOCUSATE SODIUM 100 MG CAP PO SCH ×2 (08:46→20:49)
[2020-11-16] MEDS: PRENATAL VITAMIN 1 TAB PO SCH (08:46)
[2020-11-16] MEDS ORDERED: FERROUS FUMARA PO SCH (09:00)
[2020-11-16] MEDS ORDERED: PRENATAL VIT PO SCH (09:00)
--- NOTE | 2020-11-16 12:00 | Obstetrical Progress Note ---
Date of Service November 16, 2020 Assessment & Plan (1) Normal course: PPD #1 pt doing well No complaints disch with instructions Subjective Ambulation: ambulating normally Voiding: no voiding problems Passing Gas:: Yes Diet Tolerance:: regular diet Lochia:: Small Feeding Type:: breast feeding Review of Systems All systems reviewed & are unremarkable except as noted in HPI & below Physical Exam Constitutional WD/WN, vitals as above well developed and well nourished Eyes PERRL, conjunctivae normal, anicteric sclerae Neck trachea midline, no thyromegaly Respiratory normal respiratory effort, lungs clear to auscultation Auscultation: no crackles, no rales and no wheezes Cardiovascular RRR, no murmur, no edema Gastrointestinal (Abdomen) normal bowel sounds, soft, nontender, no hepatosplenomegaly Uterus is below umbilicus Musculoskeletal no cyanosis or clubbing, extremities motor strength 5/5 Skin no rashes, warm and dry Neurologic patellar DTR's 2+ bilat, sensation intact Psychiatric A+Ox3, euthymic affect Genitourinary normal external appearance Results & Data ([facility]) Vital Signs (Past 12 Hours) Vital Signs Temp Pulse Resp BP Pulse Ox 11/16/20 07:30 36.5 C 71 18 112/72 11/16/20 05:21 36.4 C L 68 16 101/69 98
[2020-11-16] MEDS ORDERED: bisacodyL 5 MG TABEC PO SCH (20:00)
[2020-11-17] MEDS: IBUPROFEN 600 MG TAB PO PRN ×2 (01:38→08:30)
--- NOTE | 2020-11-17 05:57 | Obstetrical Progress Note ---
Date of Service November 17, 2020 Assessment & Plan (1) Normal course: PPD #2 pt doing well d/c home with instrcutions Subjective Ambulation: ambulating normally Voiding: no voiding problems Passing Gas:: Yes Diet Tolerance:: regular diet Lochia:: Small Feeding Type:: breast feeding Review of Systems All systems reviewed & are unremarkable except as noted in HPI & below Physical Exam Constitutional WD/WN, vitals as above well developed and well nourished Eyes PERRL, conjunctivae normal, anicteric sclerae Neck trachea midline, no thyromegaly Respiratory normal respiratory effort, lungs clear to auscultation Auscultation: no crackles, no rales and no wheezes Cardiovascular RRR, no murmur, no edema Gastrointestinal (Abdomen) normal bowel sounds, soft, nontender, no hepatosplenomegaly Uterus is below umbilicus Musculoskeletal no cyanosis or clubbing, extremities motor strength 5/5 Skin no rashes, warm and dry Neurologic patellar DTR's 2+ bilat, sensation intact Psychiatric A+Ox3, euthymic affect Genitourinary normal external appearance Results & Data ([facility]) Vital Signs (Past 12 Hours) Vital Signs Temp Pulse Resp BP 11/16/20 23:00 36.5 C 66 16 106/68
[2020-11-17] MEDS: DOCUSATE SODIUM 100 MG CAP PO SCH (08:31)
[2020-11-17] MEDS: PRENATAL VITAMIN 1 TAB PO SCH (08:31)
--- NOTE | 2020-11-26 22:35 | Discharge Summary (DS) ---
DATE OF DISCHARGE: 11/17/2020. CHIEF COMPLAINT: 1. at term. 2. Spontaneous rupture of membranes, . HISTORY OF PRESENT ILLNESS: This is a 35-year-old G5, P2, due date 12/16/2020, who presented to [facility] and delivery on 11/14/2020 at 35 weeks and 4 days with premature spontaneous rupture of membranes. She was admitted and went on to deliver a live infant on 11/15/2020. Details of the infant are in [facility] record. The patient did well and was discharged home on 11/17/2020. PAST MEDICAL HISTORY: History of sinusitis. PAST SURGICAL HISTORY: History of sinus surgery. FAMILY HISTORY: Noncontributory. SOCIAL HISTORY: The patient is and lives with spouse and 2 other children. ALLERGIES: No known drug allergies. REVIEW OF SYSTEMS: Negative except as dictated in the HPI. PHYSICAL EXAMINATION: GENERAL: Well-developed, well-nourished white female in no acute distress. VITAL SIGNS: Vitals on 11/17/2020 showed blood pressure of 93/61, pulse of 66, respiration of 18, te mperature of 37.2. HEART: S1 and S2, regular rhythm and rate. LUNGS: Clear to auscultation bilaterally. ABDOMEN: Nontender, nondistended. Fundus is below umbilicus. Decreased lochia. EXTREMITIES: No cyanosis, clubbing, or edema. LABORATORY DATA: On 11/17/2020 showed hemoglobin of 12.0, hematocrit of 35.0. CONDITION ON DISCHARGE: Stable. OPERATIONS: spontaneous vaginal delivery. DISCHARGE DIAGNOSIS: delivery of a at 35 weeks and 4 days. PLAN ON DISCHARGE: The patient is discharged home with instructions regarding activity, diet, and fo [facility] appointment. Job ID: [id number]
--- NOTE | 2020-12-18 14:31 | Delivery Summary ---
Vaginal Delivery Summary Date of Service December 18, 2020 Vaginal Delivery Summary Delivery Note live infant over intact perineum with Apgars 8/9 weight 4 lb. 6.4 oz. Nuchal cord x1 reduced at time of delivery of head. Cord blood obtained followed by spontaneous delivery of intact placenta. No tears. Final sponge and instrument count are correct. Mom and baby stable.
--- NOTE | 2020-12-26 09:08 | Coding Query ---
CODING QUERY To promote full compliance with coding requirements relating to patient care, provider participation is requested in all cases of water chemist uncertainty. Please assist us with the question(s) below: Coding Question(s): The Delivery Summary shows a Date of Service of 12/18/20, however, the EMR shows the date of the delivery to be 11/15/20. Please specify below, regarding the date of delivery. ( ) 11/15/20 ( ) 12/18/20 ( x ) Other Date: Please Ylwhwez [birth year] Physician's Response(s): Thank you Selina Kendrick Principal Diagnosis: "that condition established after study, to be chiefly responsible for occasioning the admission of the patient to the hospital for care." Co-Existing Principal Diagnosis: "when two or more diagnoses equally meet the criteria for principal diagnosis as determined by the circumstances of admission, diagnostic work up, and/or therapy provided, and the Alphabetic Index, Tabular List, or another coding guideline does not provide sequencing direction, any one of the diagnoses may be sequenced first." "When the physician has documented what appears to be a current diagnosis in the body of the record, but has not included the diagnosis in the final diagnostic statement, the physician should be asked whether the diagnosis should be added." (Source [facility] 2 QTR90. p3-4) MANNY
== END 2020-11-17 11:35 | disposition home or self-care (01) | DRG 807 ==
LOC: EDSTATUS 20:02 → OPB 20:02 → 4S1 20:05 → 4S2 11-15 16:19